=== PATIENT | male | born 1980 | race Caucasian/White ===

== ENCOUNTER 2018-11-19 09:17 | Emergency (ER) | payer BC ==
[2018-11-19 11:31] LABS: Absolute Lymphocytes (CBC) 2.4 K/uL (0.7-4.9); Basophils % 0.8 % (0-1.3); Hematocrit 45.3 % (39.6-49.0); Lymphocytes % 34.5 % (15.3-44.8); MPV 8.6 fL (7.6-11.3); RBC Red Blood Cell Count 5.47 M/uL (4.33-5.43)
[2018-11-19 11:45] LABS: Albumin 4.5 g/dL (3.4-5.0); Bilirubin Direct 0.2 mg/dL (0-0.2); Bilirubin Total 0.7 mg/dL (0.2-1.0); Potassium 3.7 mmol/L (3.5-5.1); Protein, Total 8.3 g/dL (6.4-8.2)
--- NOTE | 2018-11-19 12:21 | RAD REPORT ---
EXAM DESCRIPTION: CTAbdomen Pelvis W Contrast - 11/19/2018 12:14 pm CLINICAL HISTORY: Abdominal pain. lower abdominal pain COMPARISON: No comparisons TECHNIQUE: Biphasic CT imaging of the abdomen and pelvis was performed with 100 ml non-ionic IV cont rast. All CT scans are performed using dose optimization technique as appropriate and may include automated exposure control or mA/KV adjustment according to patient size. FINDINGS: The lung bases are clear. The liver demonstrates a small low-density lesion in the right lobe measuring 13 mm, probably a cyst but nonspecific. Spleen, pancreas, adrenal glands and kidneys are within normal limits. No bowel obstruction, free air, free fluid or abscess. The appendix is not identified as a discrete structure, however, no secondary findings of appendicitis are identified. No evidence of significan t lymphadenopathy. No suspicious bony findings. IMPRESSION: No acute intra-abdominal or pelvic finding.
--- NOTE | 2018-11-19 14:56 | RAD REPORT ---
EXAM DESCRIPTION: US - Scrotum Testicles - 11/19/2018 12:00 pm CLINICAL HISTORY: Testicular pain COMPARISON: None FINDINGS: Right testicle measures 3.5 x 1.9 x 3.3 centimeters. Homogeneous echotexture. Normal blood flow Left testicle measures 4.3 x 2 x 2.6 centimeters. Echotexture is homogeneous. Normal blood flow Microlithiasis left testicle The epididymides are normal in size and echotexture. Normal blood flow is seen. Small left varicocele. Small left spermatocele IMPRESSION: Small left varicocele Small left spermatocele Microlithiasis left testicle. As this is associated with an increased risk of testicular cancer a fol lowup testicular ultrasound in 1 year recommended
--- NOTE | 2018-11-19 15:04 | ER ---
Nurse's Notes [facility] Name: Woodrow Mora Age: 38 yrs Sex: Male : 1980 Arrival Date: 11/19/2018 Time: 09:20 Bed 26 Private MD: Diagnosis: Scrotal varices;Strain of muscle, fascia and tendon of abdomen Presentation: 11/19 09:58 Presenting complaint: Patient states: "I was moving a washer yesterday and I felt aa5 something rip in my stomach". Pt c/o umbilical pain and right testicular pain. Pt appears comfortable in triage. Transition of care: patient was not received from another setting of care. Onset of symptoms was November 18, 2018. Risk Assessment: Do you want to hurt yourself or someone else? Patient reports no desire to harm self or others. Initial Sepsis Screen: Does the patient meet any 2 criteria? No. Patient's initial sepsis screen is negative. Does the patient have a suspected source of infection? No. Patient's initial sepsis screen is negative. Care prior to arrival: None. 09:58 Acuity: KEYANNA 3 aa5 09:58 Method Of Arrival: Ambulatory aa5 Historical: - Allergies: 10:00 No Known Allergies; aa5 - PMHx: 10:00 None; aa5 - PSHx: 10:00 None; aa5 - Immunization history:: Adult Immunizations up to date. - Social history:: Smoking status: Patient/guardian denies using tobacco. - Ebola Screening: : No symptoms or risks identified at this time. Screenin:34 Abuse screen: Denies threats or abuse. Denies injuries from another. Nutritional wh screening: No deficits noted. Tuberculosis screening: No symptoms or risk factors identified. Fall Risk None identified. Assessment: 11:10 General: Appears in no apparent distress. Behavior is calm, cooperative, appropriate wh for age. Pain: Complains of pain in suprapubic area and scrotal area Pain does not radiate. Pain currently is 3 out of 10 on a pain scale. Quality of pain is described as tingling, Pain began 1 day ago. 11:10 Neuro: Level of Consciousness is awake, alert, obeys commands. Cardiovascular: Heart wh tones S1 S2. Respiratory: Breath sounds are clear bilaterally. GI: Abdomen is flat, non-distended, Bowel sounds present X 4 quads. Abd is soft and non tender X 4 quads. : No signs and/or symptoms were reported regarding the genitourinary system. : Reports. EENT: No signs and/or symptoms were reported regarding the EENT system. Derm: Skin is intact, is healthy with good turgor, Skin is pink, warm \\T\\ dry. normal. Musculoskeletal: Circulation, motion, and sensation intact. 12:36 Reassessment: Patient appears in no apparent distress at this time. No changes from previously documented assessment. Patient and/or family updated on plan of care and expected duration. Pain level reassessed. Patient is alert, oriented x 3, equal unlabored respirations, skin warm/dry/pink. 13:35 Reassessment: Patient appears in no apparent distress at this time. No changes from previously documented assessment. Patient and/or family updated on plan of care and expected duration. Pain level reassessed. Patient is alert, oriented x 3, equal unlabored respirations, skin warm/dry/pink. Patient denies pain at this time. 15:15 Reassessment: Patient appears in no apparent distress at this time. No changes from previously documented assessment. Patient and/or family updated on plan of care and expected duration. Pain level reassessed. Patient is alert, oriented x 3, equal unlabored respirations, skin warm/dry/pink. Patient denies pain at this time. Vital Signs: 10:00 BP 140 / 90; Pulse 73; Resp 18 S; Temp 98.5(O); Pulse Ox 97% on R/A; Weight 77.11 kg aa5 (R); Height 5 ft. 8 in. (172.72 cm) (R); Pain 3/10; 11:10 BP 128 / 87; Pulse 79; Resp 18; Pulse Ox 100% on R/A; wh 12:30 BP 121 / 89; Pulse 63; Resp 18; Pulse Ox 99% on R/A; wh 13:30 BP 127 / 87; Pulse 66; Resp 18; Pulse Ox 99% on R/A; wh 10:00 Body Mass Index 25.85 (77.11 kg, 172.72 cm) aa5 ED Course: 09:20 Patient arrived in ED. rg4 09:58 Arm band placed on. aa5 09:59 Triage completed. aa5 10:50 Juan Davis is Primary Nurse. 10:52 Hiram Sainz PA is PHCP. [facility] 10:52 Miquel Lewis MD is Attending Physician. [facility] 11:10 Patient has correct armband on for positive identification. Bed in low position. Call light in reach. Side rails up X 1. Pulse ox on. NIBP on. 11:10 Inserted saline lock: 20 gauge in right antecubital area, using aseptic technique. Blood collected. 11:40 US Scrotum Testicles In Process Unspecified. EDMS 12:23 CT Abd/Pelvis - IV Contrast Only In Process Unspecified. EDFL 15:02 Marty Engel MD is Referral Physician. [facility] 15:26 No provider procedures requiring assistance completed. IV discontinued, intact, bleeding controlled, No redness/swelling at site. Administered Medications: No medications were administered Outcome: 15:04 Discharge ordered by MD. [facility] 15:27 Discharged to home ambulatory, with family. 15:27 Condition: good 15:27 Discharge instructions given to patient, family, Instructed on discharge instructions, follow up and referral plans. POC Varicocele Demonstrated understanding of instructions, follow-up care, POC 15:28 Patient left the ED. Signatures: Dispatcher [employer] EDFL Hiram Sainz PA PA jmm Calderon, Audri, RN RN Kiana Rondon rg4 Juan Davis
--- NOTE | 2018-11-19 15:05 | EDPHYS ---
Physician Documentation [facility] Name: Woodrow Mora Age: 38 yrs Sex: Male : 1980 Arrival Date: 11/19/2018 Time: 09:20 Bed 26 Private MD: ED Physician Miquel Lewis HPI: 11/19 11:13 This 38 yrs old Male presents to ER via Ambulatory with complaints of jmm Testicular Pain, Abdominal Pain. 11:13 The patient presents with scrotal pain, of the right side. Onset: The symptoms/episode jmm began/occurred acutely, 6 day(s) ago. Modifying factors: The symptoms are alleviated by nothing, the symptoms are aggravated by nothing. Associated signs and symptoms: Pertinent positives: abdominal pain. This is a 38 year old male with no chronic medical conditions that presents to the ED with complaints of lower abdominal pain. Patient states he hurt himself while using a deepak to move this past Thursday and reinjured himself while pulling out a golf cart battery. Patient states the pain radiates to his right scrotal pain. . Historical: - Allergies: 10:00 No Known Allergies; aa5 - PMHx: 10:00 None; aa5 - PSHx: 10:00 None; aa5 - Immunization history:: Adult Immunizations up to date. - Social history:: Smoking status: Patient/guardian denies using tobacco. - Ebola Screening: : No symptoms or risks identified at this time. ROS: 11:13 Constitutional: Negative for fever, chills, and weight loss, Cardiovascular: Negative jmm for chest pain, palpitations, and edema, Respiratory: Negative for shortness of breath, cough, wheezing, and pleuritic chest pain. 11:13 Abdomen/GI: Positive for abdominal pain. 11:13 All other systems are negative. Exam: 11:13 Constitutional: This is a well developed, well nourished patient who is awake, alert, jmm and in no acute distress. Head/Face: atraumatic. Eyes: EOMI, no conjunctival erythema appreciated ENT: Moist Mucus Membranes Neck: Trachea midline, Supple Chest/axilla: Normal chest wall appearance and motion. Cardiovascular: Regular rate and rhythm. No edema appreciated Respiratory: Normal respirations, no respiratory distress appreciated 11:13 Skin: General appearance color normal MS/ Extremity: Moves all extremities, no obvious deformities appreciated, no edema noted to the lower extremities Neuro: Awake and alert, normal gait Psych: Behavior is normal, Mood is normal, Patient is cooperative and pleasant 11:13 Abdomen/GI: Inspection: abdomen appears normal, Bowel sounds: normal, Palpation: soft, mild abdominal tenderness, in the umbilical area and suprapubic area. 11:13 : Male external genitalia: normal. Vital Signs: 10:00 BP 140 / 90; Pulse 73; Resp 18 S; Temp 98.5(O); Pulse Ox 97% on R/A; Weight 77.11 kg aa5 (R); Height 5 ft. 8 in. (172.72 cm) (R); Pain 3/10; 11:10 BP 128 / 87; Pulse 79; Resp 18; Pulse Ox 100% on R/A; wh 12:30 BP 121 / 89; Pulse 63; Resp 18; Pulse Ox 99% on R/A; wh 13:30 BP 127 / 87; Pulse 66; Resp 18; Pulse Ox 99% on R/A; wh 10:00 Body Mass Index 25.85 (77.11 kg, 172.72 cm) aa5 MDM: 10:53 Patient medically screened. [facility] 15:01 Data reviewed: vital signs, nurses notes. Counseling: I had a detailed discussion with divya the patient and/or guardian regarding: the historical points, exam findings, and any diagnostic results supporting the discharge/admit diagnosis, lab results, radiology results, the need for outpatient follow up, to return to the emergency department if symptoms worsen or persist or if there are any questions or concerns that arise at home. ED course: Patient is alert and non toxic in appearance in the ED. I discussed with the patient the need to follow up with Urology and the need to repeat us in 1 year. Patient otherwise advised to return to the ED if symptoms worsen.. 11/19 11:04 Order name: Basic Metabolic Panel; Complete Time: 11:48 [facility] 11/19 11:04 Order name: CBC with Diff; Complete Time: 11:48 [facility] 11/19 11:04 Order name: Creatinine for Radiology; Complete Time: 11:48 [facility] 11/19 11:04 Order name: Hepatic Function; Complete Time: 11:48 [facility] 11/19 11:04 Order name: Lipase; Complete Time: 11:48 [facility] 11/19 11:04 Order name: CT Abd/Pelvis - IV Contrast Only; Complete Time: 12:43 [facility] 11/19 11:04 Order name: IV Saline Lock; Complete Time: 11:15 [facility] 11/19 11:04 Order name: Labs collected and sent; Complete Time: 11:15 [facility] 11/19 11:04 Order name: US Scrotum Testicles; Complete Time: 15:26 [facility] Administered Medications: No medications were administered Disposition: 19:02 Co-signature as Attending Physician, Miquel Lewis MD I agree with the assessment and rn plan of care. Disposition: 11/19/18 15:04 Discharged to Home. Impression: Scrotal varices, Strain of muscle, fascia and tendon of abdomen. - Condition is Stable. - Discharge Instructions: Muscle Strain, Varicocele. - Medication Reconciliation Form, Thank You Letter, Antibiotic Education, Prescription Opioid Use form. - Follow up: Marty Engel MD; When: 2 - 3 days; Reason: Recheck today's complaints, Continuance of care, Re-evaluation by your physician. Signatures: Dispatcher [employer] EDMS Hiram Sainz PA PA [facility] Miquel Lewis MD MD rn Calderon, Audri, RN RN aa5 Juan Davis Corrections: (The following items were deleted from the chart) 15:28 15:04 11/19/2018 15:04 Discharged to Home. Impression: Scrotal varices; Strain of wh muscle, fascia and tendon of abdomen. Condition is Stable. Forms are Medication Reconciliation Form, Thank You Letter, Antibiotic Education, Prescription Opioid Use. Follow up: Marty Engel; When: 2 - 3 days; Reason: Recheck today's complaints, Continuance of care, Re-evaluation by your physician. [facility]
[2018-11-19 15:34] VITALS: TEMP 98.5
[2018-11-19 15:38] VITALS: O2SAT 99
[2018-11-19 15:40] VITALS: BP 127/87
== END 2018-11-19 15:28 | disposition home or self-care (01) ==
LOC: ER 09:17
DX: S39.011A Strain of muscle, fascia and tendon of abdomen, initial encounter (principal); I86.1 Scrotal varices; X50.9XXA Other and unspecified overexertion or strenuous movements or postures, initial encounter; Y93.89 Activity, other specified; Y92.9 Unspecified place or not applicable
CPT/HCPCS: 85025; 80048; 36415; 80076; 83690; 74177; 76870; 99284; Q9967